=== PATIENT | female | born 1985 | race Native Hawaiian/Other Pacific Islander ===

== ENCOUNTER 2018-05-18 22:46 | Emergency (ER) | payer MEDICAID ==
[2018-05-18 22:46] VITALS: BMI 29.2
[2018-05-18 22:58] VITALS: BP 111/73; O2SAT 100
--- NOTE | 2018-05-19 04:18 | C.PDOC ---
History Of Present Illness 33 year old female presents to the emergency department with complaints of one week of feeling throat irritation. Patient states that she was evaluated by her PMD who told her she has an allergy. Since being evaluated, patient's symptoms of worsened, patient feels as if something is in her throat. Patient also complains of bilateral shoulder pain. Time Seen by Provider: 05/19/18 00:03 Chief Complaint (Nursing): ENT Problem History Per: Patient History/Exam Limitations: None Onset/Duration Of Symptoms: Other (1 week) Current Symptoms Are (Timing): Worse Quality (Mouth/Throat): Other (irritation) Symptoms Have Been: Continuous Past Medical History Reviewed: Historical Data, Nursing Documentation, Vital Signs Vital Signs: Last Vital Signs Temp 97.5 F L 05/18/18 22:56 Pulse 90 05/18/18 22:56 Resp 20 05/18/18 22:56 BP 111/73 05/18/18 22:56 Pulse Ox 100 05/18/18 22:56 - Medical History PMH: Gastritis Denies: HIV, Chronic Kidney Disease Surgical History: Appendectomy, Tonsillectomy, (x3) - [facility] Procedures INSPECTION OF GASTROINTESTINAL TRACT, PERC ENDO APPROACH (04/26/17) Family History: States: No Known Family Hx - Social History Hx Alcohol Use: No Hx Substance Use: No - Immunization History Hx Tetanus Toxoid Vaccination: No Hx Influenza Vaccination: No Hx Pneumococcal Vaccination: No Review Of Systems Constitutional: Negative for: Fever, Chills, Weakness Eyes: Negative for: Redness, Other (scleral icterus) ENT: Positive for: Throat Pain. Negative for: Mouth Swelling Cardiovascular: Negative for: Chest Pain Respiratory: Negative for: Cough, Shortness of Breath Gastrointestinal: Negative for: Nausea, Vomiting, Diarrhea Genitourinary: Negative for: Dysuria, Hematuria Musculoskeletal: Positive for: Shoulder Pain (b/l) Neurological: Negative for: Weakness, Numbness, Dizziness Physical Exam - Physical Exam Additional Physical Exam Comments: General- Well, non-toxic, appears uncomfortable. Skin- normal, warm, no rash Head: Normocephalic, Atraumatic Eyes: Normal Inspection (no scleral icterus), PERRL, EOMI Ears: Normal (no drainage) Nose- normal Throat: Throat irritation, tolerating secretions, No Exudate, Other (Airway patent) Mucosa moist Neck- supple, normal ROM Chest- Symmetrical Resp- No accessory muscle use, other (Normal inspiratory effort) Abd- Soft, Non-distended Back- Ambulating with steady upright gait Ext- Atraumatic, Normal ROM Radial pulses 2+ Neuro- Oriented x3, Cranial nerves grossly intact ED Course And Treatment O2 Sat by Pulse Oximetry: 100 (RA) Pulse Ox Interpretation: Normal - CT Scan/US CT Neck Soft Tissue Other Rad Studies (CT/US): Read By Radiologist, Radiology Report Reviewed CT/US Interpretation: PROCEDURE: CT SOFT TISSUE NECK WITHOUT CONTRAST. REASON FOR EXAM: Foreign body sensation. TECHNIQUE: The patient was scanned in a multi-detector CT scanner. High resolution transaxial imaging was performed without intravenous administration of contrast material. Sagittal and coronal images were reconstructed. COMPARISON: None. FINDINGS: Moderate chronic mucosal inflammatory changes of the left maxillary sinus. Mild chronic mucosal inflammatory changes of the right maxilla sinus and ethmoid air cells. Normal bilateral parotid glands. Normal bilateral crystal lapper spaces. Normal bilateral parapharyngeal spaces. Normal bilateral carotid spaces. Normal bilateral sublingual and submandibular glands. Normal visualized nasopharynx. Normal retropharyngeal space. Normal perivertebral space. Normal visualized bilateral faucial tonsils. The visualized tongue, tongue base and oropharynx are normal. The visualized cervical lymph nodes (levels I-) are within normal size limits, and maintain normal morphology. There is no demonstrated solid or cystic mass lesion. Normal epiglottis, bilateral vallecula and hypopharynx. The pre- epiglottic and paraglottic adipose spaces are normal. Normal visualized bilateral piriform sinuses, aryepiglottic folds, vocal cords, and arytenoid- cricoid articulations. Normal subglottic trachea. Normal bilateral lobes of the thyroid gland. Normal visualized pulmonary apices. Normal visualized cervical spine. IMPRESSION: Chronic sinusitis. No other abnormality is seen. Medical Decision Making Medical Decision Making: Plan: CT Neck Soft Tissue Valium 5mg PO POC Urine Patient reports feeling better upon taking Valium. Disposition Counseled Patient/Family Regarding: Diagnosis, Need For Followup, Rx Given - Disposition Referrals: Que Mireles MD [Staff Provider] - Disposition: HOME/ ROUTINE Disposition Time: 04:16 Condition: STABLE Prescriptions: Cyclobenzaprine [Flexeril] 5 mg PO TID #15 tab Ibuprofen [Motrin Tab] 600 mg PO TID #21 tab Prednisone [Deltasone] 40 mg PO DAILY #8 tablet Instructions: Sore Throat, Adult (DC) Forms: [facility] (Libyan), General Discharge Instructions - Clinical Impression Clinical Impression: Throat discomfort - PA / COST ESTIMATOR / Resident Statement MD/DO has reviewed & agrees with the documentation as recorded. - Scribe Statement The provider has reviewed the documentation as recorded by the Scribe (Tray Sharp) All medical record entries made by the Scribe were at my direction and personally dictated by me. I have reviewed the chart and agree that the record accurately reflects my personal performance of the history, physical exam, medical decision making, and the department course for this patient. I have also personally directed, reviewed, and agree with the discharge instructions and disposition.
[2018-05-19 04:51] VITALS: PULSE 81; RESP 16; TEMP 98
--- NOTE | 2018-05-19 18:24 | CT ---
Date of service: 05/19/2018 PROCEDURE: CT NECK WITHOUT CONTRAST HISTORY: foreign body sensation COMPARISON: None available. TECHNIQUE: CT of the neck without intravenous contrast. Coronal and sagittal reformats generated. Radiation dose: Total exam DLP = 471.16 mGy-cm. This CT exam was performed using one or more of the following dose reduction techniques: Automated exposure control, adjustment of the mA and/or kV according to patient size, and/or use of iterative reconstruction technique. FINDINGS: NASOPHARYNX: Unremarkable. SUPRAHYOID NECK: Very small linear calcific density seen in the left lingual tonsillar soft tissue. It measures approximately 3 mm in length. This likely represents calcification within a tonsillar crypt. The somewhat linear nature of this very small density raises the possibility that this represents a foreign body but given the location within the tonsillar soft tissues, that is unlikely. Normal epiglottis. Parapharyngeal spaces are clear. INFRAHYOID NECK: Unremarkable larynx, hypopharynx, and supraglottic space. Vocal cords intact. MASS: None. GLANDS: Parotid and submandibular glands unremarkable. Normal size thyroid gland, without nodule. LYMPH NODES: Normal. No lymphadenopathy. CERVICAL SPINE: No fracture or focal lesion. OTHER FINDINGS: None. IMPRESSION: Somewhat linear calcification within the left lingual tonsillar soft tissues, approximately 3 mm in length. Possible atypical tonsillar crypt calcification. Less likely foreign body. See above. No additional abnormality. The preliminary findings for this examination were reported by [facility] at 4:14 a.m. on 05/19/2018. There is discordance of this report with the preliminary findings. The presence of this small linear calcific density was not described in the preliminary report of this examination.
== END 2018-05-19 04:20 | disposition home or self-care (01) ==
LOC: C.ER 22:46
DX: R07.0 Pain in throat (principal)